=== PATIENT | female | born 2000 | race Caucasian/White ===

== ENCOUNTER 2021-05-28 10:43 | Outpatient (CLI) | payer BC, SELFPAY ==
--- NOTE | ~2021-05-28 | MR_ITS ---
EXAMINATION: MR knee LT wo con DATE: 05/28/2021 11:50 INDICATION: Lateral dislocation of left patella. TECHNIQUE: Magnetic resonance imaging (MRI) of the left knee was performed without intravenous contra st. Sequences included axial PD-weighted FS FSE, coronal PD-weighted FSE and PD-weighted FS FSE, sagi ttal PD-weighted FSE, and sagittal T2-weighted FS FSE. COMPARISON: None. FINDINGS: Medial compartment: Medial meniscus is normal. Medial compartment cartilage is normal. Lateral compartment: Lateral meniscus is normal. Tibial cartilage is normal. There is full-thickness cartilage loss of fem oral condyle involving the central and lateral articular surface. There is edema-like marrow signal i ntensity in lateral femoral condyle with a lateral and subchondral predominance. Patellofemoral compartment: There is lateral subluxation of patella. Trochlear dysplasia is noted. Patellar cartilage is normal. Trochlear cartilage is normal. Ligaments and tendons: The anterior and posterior cruciate ligaments are normal. Medial collateral ligament is normal. There are changes of prior sprain of fibular collateral ligament characterized by thickening and increased signal intensity. The patellar tendon is normal. Fluid: There is a small knee joint effusion. There is a 17 x 13 mm cartilage fragment in lateral patellofemo ral joint recess. There is a small Diaz's cyst. Osseous/other: There is mild edema-like marrow signal intensity in medial patella. There is edema in Hoffa's fat pad superolaterally. IMPRESSION: 1. Full-thickness cartilage loss of lateral femoral condyle involving the central and lateral articul ar surface with displaced 17 x 13 mm cartilage fragment in lateral patellofemoral joint recess. 2. Edema-like marrow signal intensity medial patella and lateral aspect of lateral femoral condyle, c onsistent with patellar dislocation-relocation injury. 3. Small knee joint effusion. 4. Small Diaz's cyst. Reviewed, dictated and finalized at location A. STANT OPERATIONS MANAGER IMPRESSION: 1. Full-thickness cartilage loss of lateral femoral condyle involving the centr al and lateral articular surface with displaced 17 x 13 mm cartilage fragment i n lateral patellofemoral joint recess. 2. Edema-like marrow signal intensity medial patella and lateral aspect of late ral femoral condyle, consistent with patellar dislocation-relocation injury. 3. Small knee joint effusion. 4. Small Diaz's cyst.
== END 2021-05-28 10:44 | disposition home or self-care (01) ==
LOC: ANHIMG 10:43
PROVIDERS: PCP Pediatrics Adolescent Medicine
DX: S83.015A Lateral dislocation of left patella, initial encounter (principal); X58.XXXA Exposure to other specified factors, initial encounter; Q68.2 Congenital deformity of knee; M25.462 Effusion, left knee; M71.22 Synovial cyst of popliteal space [Baker], left knee
CPT/HCPCS: 73721

== ENCOUNTER 2022-04-02 10:37 | Outpatient (CLI) | payer BC, SELFPAY ==
--- NOTE | ~2022-04-02 | MR_ITS ---
EXAMINATION: MR knee RT wo con DATE: 04/02/2022 11:26 INDICATION: Right knee pain, sensation of giving out. Possible loose body. TECHNIQUE: Magnetic resonance imaging (MRI) of the right knee was performed without intravenous contr ast. Sequences included axial PD-weighted FS FSE, coronal PD-weighted FSE and PD-weighted FS FSE, sag ittal PD-weighted FSE, and sagittal T2-weighted FS FSE. COMPARISON: None. FINDINGS: Medial compartment: Meniscus and cartilage intact. Lateral compartment: Meniscus and cartilage intact. Patellofemoral compartment: The patella is positioned laterally with respect to the femoral groove. Full-thickness signal abnorma lity on the lateral facet, without focal defect. Retinacula are intact. Ligaments and tendons: ACL, PCL, MCL, and LCL are intact. Remaining flexor and extensor tendons are intact. Fluid: Normal volume joint fluid. Trace Diaz's cyst. Osseous/other: No suspicious focal or diffuse marrow signal. Mild edema in the infrapatellar fat pad. IMPRESSION: 1. Lateral patellar subluxation which may reflect a patellar tracking abnormality in the appropriate clinical context. 2. Infrapatellar fat pad edema. 3. No loose joint body detected. Reviewed, dictated and finalized at location K. IMPRESSION: 1. Lateral patellar subluxation which may reflect a patellar tracking abnormali ty in the appropriate clinical context. 2. Infrapatellar fat pad edema. 3. No loose joint body detected.
== END 2022-04-02 10:38 | disposition home or self-care (01) ==
PROVIDERS: PCP Family Medicine; Visit Provider Orthopaedic Surgery
DX: M25.561 Pain in right knee (principal)
CPT/HCPCS: 73721

== ENCOUNTER 2022-05-10 16:55 | Outpatient (CLI) | payer BC, SELFPAY ==
--- NOTE | ~2022-05-10 | MR_ITS ---
EXAMINATION: MR knee LT wo con DATE: 05/10/2022 17:33 INDICATION: Medial left knee pain for 5-6 months. History of dislocation and surgery. No recent traum a. TECHNIQUE: Magnetic resonance imaging (MRI) of the left knee was performed without intravenous contra st. Sequences included axial PD-weighted FS FSE, coronal PD-weighted FSE and PD-weighted FS FSE, sagi ttal PD-weighted FSE, and sagittal T2-weighted FS FSE. COMPARISON: 05/28/2021. FINDINGS: Medial compartment: Mild diffuse cartilage thinning. Intact meniscus. Lateral compartment: 5 mm full-thickness cartilage defect on the weightbearing surface of the lateral femoral condyle in a background of mild diffuse cartilage thinning. Intact meniscus. Patellofemoral compartment: The patellar cartilage is intact. Torn medial retinaculum. Irregularity along the medial aspect of th e patella, with adjacent soft tissue thickening, abnormal signal and likely surgical scar. Lateral corley bluxation of the patella. Patellar and quadriceps tendons are intact. Ligaments and tendons: The ACL, PCL, MCL, and LCL are intact. The remaining flexor and extensor tendons are intact. Fluid: Trace knee joint fluid. A portion of the previously described cartilage fragments in the lateral jones llofemoral joint recess may persist. Osseous/other: No suspicious focal or diffuse marrow signal. Edema in the infrapatellar fat pad. IMPRESSION: 1. Full-thickness focal cartilage defect on the lateral femoral condyle. 2. Likely persistent cartilage fragments in the lateral patellofemoral joint recess with some interva l resorption. 3. Infrapatellar fat pad impingement. 4. Postsurgical change in the medial patella and anterior soft tissues. Reviewed, dictated and finalized at location K. ETRICS GYN PHYSICIAN IMPRESSION: 1. Full-thickness focal cartilage defect on the lateral femoral condyle. 2. Likely persistent cartilage fragments in the lateral patellofemoral joint re cess with some interval resorption. 3. Infrapatellar fat pad impingement. 4. Postsurgical change in the medial patella and anterior soft tissues.
== END 2022-05-10 16:56 ==
PROVIDERS: Visit Provider Orthopaedic Surgery
DX: M25.562 Pain in left knee (principal); G89.29 Other chronic pain
CPT/HCPCS: 73721